=== PATIENT | male | born 1995 | race Caucasian/White ===

== ENCOUNTER 2019-05-06 00:31 | Emergency (ER) | payer OTHER, SELFPAY ==
[2019-05-06 00:38] VITALS: BP 144/97; PULSE 126; RESP 18; TEMP 37; O2SAT 99; BMI 21.7
--- NOTE | 2019-05-06 00:38 | ED_ITS ---
Entered by Samantha Buckner, acting as scribe for Shannon Alonso MD HPI - General Adult General: Chief complaint: General Medical Stated complaint: poss bad drugs Time Seen by Provider: 05/06/19 00:36 Source: patient Mode of arrival: ambulatory History of Present Illness: HPI narrative: 23 y/o male presents to the ED with complaint of meth side effects. Pt states he is visiting from [place], trying to get his probation transferred. While staying in [facility], he decided to use IV meth, 3 hours ago. He is here tonight because he thinks he got bad drugs . He states is is experiencing muscle cramps, SOB/anxiety and fast heart rate. He admits to using meth in the past but says he does not usually feel like this. complaint: Meth use Onset (ago): hour(s) (3) Severity: mild Pain Consistency: constant Associated symptoms: Reports dyspnea and palpitations; Deny headache(s), nausea, rash or vomiting Review of Systems Const: Denies: fever, chills, body aches or change in appetite Eyes: Denies: blurry vision or eye discomfort ENMT: Denies: throat pain or dental pain Card: Reports: palpitations Resp: Reports: shortness of breath GI: Denies: abdominal pain, nausea, vomiting or diarrhea : Denies: painful urination Musc: Reports: muscle cramps; Denies: neck pain or back pain Skin/Breast: Denies: rash Neuro: Denies: headache Psych: Reports: anxiety; Denies: depression Ildefonso/Lymph: Denies: easy bruising All/Imm: Denies: hives PFS ED PFSH: Social History Smoking and tobacco status: current every day smoker Physical Exam Const: COMMON NORMALS: oriented x3 GENERAL APPEARANCE: anxious ORIENTATION/CONSCIOUSNESS: Yes awake HENMT: COMMON NORMALS: normocephalic and head/scalp atraumatic HEAD & SCALP: normocephalic and atraumatic Eye: COMMON NORMALS: PERRL and EOMs intact bilaterally PUPIL: Yes PERRL Neck/C-Spine: COMMON NORMALS: full ROM and supple Chest: COMMONS NORMALS: inspection of chest normal and palpation of chest normal Resp: COMMON NORMALS: normal respiratory effort, no retractions, no use of accessory muscles and clear to auscultation bilaterally AUSCULTATION: clear to auscultation bilaterally Cardio: COMMON NORMALS: regular rhythm and no murmurs RATE: tachycardic RHYTHM: regular rhythm GI: COMMON NORMALS: normal to inspection, nondistended, normoactive bowel sounds, soft to palpation, non-tender and no masses PALPATION: Yes soft Extremity: COMMON NORMALS: normal to inspection and full ROM Neuro: COMMON NORMALS: oriented x3, moves all extremities and no focal motor deficits Psych: COMMON NORMALS: thought process normal, cooperative and speech normal SPEECH: Yes normal speech THOUGHT PROCESS: normal thought process Skin: COMMON NORMALS: no rashes or lesions noted and no wounds GENERAL SKIN EXAM: no rashes or lesions noted Course Vital Signs: Vital signs: Vital Signs Temperature 98.6 F 05/06/19 00:38 Pulse Rate 108 H 05/06/19 00:44 Respiratory Rate 18 05/06/19 00:44 Blood Pressure 144/97 05/06/19 00:44 Pulse Oximetry 97 05/06/19 00:44 MDM - General Adult MDM Narrative: Medical decision making narrative: Patient presents here with drug use. He is well-appearing here and given Ativan. His heart rate is improved. He is stable for discharge. He has no homicidality or suicidality Discharge Plan Discharge Patient Disposition: Home, Self-Care Clinical Impression: Methamphetamine abuse Condition: Stable Prescriptions: No Action No Known Home Medications RF: 0 Discharge Orders: Discharge Order (Routine); Ordered 05/06/19 Ordered By: Shannon Alonso Discharge Diet: Advance as tolerated Discharge Activity: Resume usual activity Patient Instructions: Methamphetamine Abuse (ED) Coding Level of Care Code ED Credit Relationship Manager for g Fwd Exam Comprehensive The documentation recorded by the Dudley marques Ashley, accurately reflects the service I personally performed and the decisions made by Celeste palma Korby, MD May 06, 2019 00:31
[2019-05-06 00:44] VITALS: BP 144/97; PULSE 108; RESP 18; O2SAT 97
--- NOTE | 2019-05-06 00:45 | PC.NURSE ---
Introduced self to patient and initiated vital signs. Patient presents A&O x 4. NAD, ABCs intact, MAEW and agreeable to treatment. Respirations are even and unlabored. Pt states medications taken before coming to ER are . Pt states that the chief complaint for the ER visit today is due to Pt also complaining of . IV observed in . Pt denies any vision disturbances or lightheadedness. Bed left in lowest position in semi-fowlers with side rails up.Reassured patient of needs and will continue to monitor. Awaiting provider at bedside.
--- NOTE | 2019-05-06 00:45 | PC.NURSE ---
Introduced self to patient and initiated vital signs. Patient presents A&O x 4. NAD, ABCs intact, MAEW and agreeable to treatment. Respirations are even and unlabored. Pt states that the chief complaint for the ER visit today is due to possibly getting some bad drugs. Pt states that he did'nt feel the same way as he usually does after snorting methamphetamine and then noticed brown bumps on his arms. Pt denies any vision disturbances or lightheadedness. Bed left in lowest position in semi-fowlers with side rails up.Reassured patient of needs and will continue to monitor.
--- NOTE | 2019-05-06 01:59 | PC.NURSE ---
Discharge delayed in order to [place] patient
== END 2019-05-06 01:25 | disposition home or self-care (01) ==
PROVIDERS: Emergency Provider Emergency Medicine
DX: F15.90 Other stimulant use, unspecified, uncomplicated (principal); F17.210 Nicotine dependence, cigarettes, uncomplicated
CPT/HCPCS: 12345; 99281; 99282

== ENCOUNTER 2019-05-06 01:52 | Emergency (ER) | payer OTHER, SELFPAY ==
--- NOTE | 2019-05-06 02:09 | ED_ITS ---
Entered by Samantha Buckner, acting as scribe for Shannon Alonso MD HPI - General Adult General: Chief complaint: Psychiatric Symptoms Stated complaint: MHE Time Seen by Provider: 05/06/19 01:59 Source: patient Mode of arrival: ambulatory History of Present Illness: HPI narrative: 23 y/o male presents to the ED with complaint of meth induced paranoia. Pt was just d/c prior to checking in again f or meth symptoms. Pt says he thinks his ex-girlfriend is controlling his life, even though the are not together anymore. Pt states she has access to his [employer], [employer], etc and she is controlling the people that he comes into contact with. He says that people do things around him that she used to do . complaint: Meth induced Paranoia - MHE Onset (ago): hour(s) Severity: moderate Associated symptoms: Deny chest pain, dyspnea, headache(s), nausea, rash or vomiting Review of Systems Const: Denies: fever, chills, body aches or change in appetite Eyes: Denies: blurry vision or eye discomfort ENMT: Denies: throat pain or dental pain Card: Denies: chest pain Resp: Denies: shortness of breath GI: Denies: abdominal pain, nausea, vomiting or diarrhea : Denies: painful urination Musc: Denies: neck pain or back pain Skin/Breast: Denies: rash Neuro: Denies: headache Psych: Reports: anxiety and paranoia; Denies: depression Ildefonso/Lymph: Denies: easy bruising All/Imm: Denies: hives PFS ED PFSH: Social History Smoking and tobacco status: current every day smoker Physical Exam Const: COMMON NORMALS: no apparent distress GENERAL APPEARANCE: anxious HENMT: COMMON NORMALS: normocephalic and head/scalp atraumatic HEAD & SCALP: normocephalic and atraumatic Eye: COMMON NORMALS: PERRL and EOMs intact bilaterally PUPIL: Yes PERRL Neck/C-Spine: COMMON NORMALS: full ROM and supple Chest: COMMONS NORMALS: inspection of chest normal and palpation of chest normal Resp: COMMON NORMALS: normal respiratory effort, no retractions, no use of accessory muscles and clear to auscultation bilaterally AUSCULTATION: clear to auscultation bilaterally Cardio: COMMON NORMALS: regular rate, regular rhythm and no murmurs RATE: regular rate RHYTHM: regular rhythm GI: COMMON NORMALS: normal to inspection, nondistended, normoactive bowel sounds, soft to palpation, non-tender and no masses PALPATION: Yes soft Extremity: COMMON NORMALS: normal to inspection and full ROM Neuro: COMMON NORMALS: moves all extremities and no focal motor deficits Psych: COMMON NORMALS: speech normal ATTITUDE: Yes paranoid SPEECH: Yes normal speech Skin: COMMON NORMALS: no rashes or lesions noted and no wounds GENERAL SKIN EXAM: no rashes or lesions noted Course Vital Signs: Vital signs: Vital Signs Temperature 97.8 F 05/06/19 02:14 Pulse Rate 115 H 05/06/19 02:14 Respiratory Rate 16 05/06/19 02:14 Blood Pressure 122/79 05/06/19 02:14 Pulse Oximetry 98 05/06/19 02:14 MDM - General Adult MDM Narrative: Medical decision making narrative: Patient presents here with some mild hallucinations. He states that his girlfriend is logging into his [employer] and [employer]. Patient is not homicidal or suicidal. He did use methamphetamine today. He is well-appearing here and I feel he is stable for discharge and safe on his own. Patient is to follow-up with [facility] and return if worsening. Discharge Plan Discharge Patient Disposition: Home, Self-Care Clinical Impression: Methamphetamine abuse Condition: Stable Prescriptions: No Action No Known Home Medications RF: 0 Discharge Orders: Discharge Order (Routine); Ordered 05/06/19 Ordered By: Shannon Alonso Discharge Diet: Advance as tolerated Discharge Activity: Resume usual activity Patient Instructions: Methamphetamine Abuse (ED) Coding Level of Care Code ED Gold Blower for Chg Fwd Exam Comprehensive The documentation recorded by the Dudley marques Ashley, accurately reflects the service I personally performed and the decisions made by me, Shannon Alonso MD May 06, 2019 01:52
[2019-05-06 02:14] VITALS: BP 122/79; PULSE 115; RESP 16; TEMP 36.6; O2SAT 98; BMI 21.7
== END 2019-05-06 04:16 | disposition home or self-care (01) ==
PROVIDERS: Emergency Provider Emergency Medicine
DX: F15.988 Other stimulant use, unspecified with other stimulant-induced disorder (principal); F17.210 Nicotine dependence, cigarettes, uncomplicated
CPT/HCPCS: 12345; 99281

== ENCOUNTER 2019-09-07 16:20 | Outpatient (CLI) | payer OTHER, SELFPAY ==
--- NOTE | 2019-09-07 16:32 | XR_ITS ---
WS: [id number] ABDOMEN 1 VIEW(S) HISTORY: HX OF CALCULUS KIDNEY, HEMATURIA COMPARISON: None available. Normal bowel gas pattern. RIGHT ureteral double pigtail stent catheters present. 12 mm calcification projects over the RIGHT ki dney. Additional 7 mm calcification over the LEFT kidney. No bone abnormality. XR/XR KUB [id number] IMPRESSION: 1. RIGHT ureteral pigtail catheter remains in good position. 2. Bilateral nephrolithiasis.
== END 2019-09-07 16:21 | disposition home or self-care (01) ==
LOC: RAD 16:24
PROVIDERS: Visit Provider Nurse Practitioner Family
DX: Z87.442 Personal history of urinary calculi (principal); R31.9 Hematuria, unspecified; R30.9 Painful micturition, unspecified
CPT/HCPCS: 74018

== ENCOUNTER 2019-09-12 22:01 | Emergency (ER) | payer OTHER, SELFPAY ==
[2019-09-12 22:34] VITALS: BP 125/84; PULSE 88; RESP 14; TEMP 35.6; O2SAT 99; BMI 26.4
[2019-09-12 23:18] LABS: Basophils # 0.1 10^3/uL (0.0-0.1); Basophils % 1.4 %; Eosinophils # 0.3 10^3/uL (0.0-0.8); Eosinophils % 3.4 %; Hematocrit 44.5 % (42.0-52.0); Hemoglobin 14.6 g/dL (11.7-16.6); Lymphocytes # 2.8 10^3/uL (0.8-4.8); Lymphocytes % 35.8 %; Mean Corpuscular HGB Conc 32.8 g/dL (30.0-36.0); Mean Corpuscular Hemoglobin 29.6 pg (28.0-34.0); Mean Corpuscular Volume 90.3 fL (80-94); Mean Platelet Volume 11.3 fL (7.4-10.4); Monocytes # 1.1 10^3/uL (0.2-0.9); Monocytes % 13.4 %; Neutrophils # 3.61 10^3/uL (1.8-7.7); Neutrophils % 45.6 %; Nucleated Red Blood Cells % 0 %; Platelet Count 270 10^3/cmm (130-400); Red Blood Count 4.93 10^6/uL (4.1-5.3); Red Cell Distribution Width 13.3 % (12.1-15.1); White Blood Count 7.9 10^3/uL (4.0-10.0)
[2019-09-12 23:31] LABS: Alanine Aminotransferase 26 U/L (0-41); Albumin Level 4.4 g/dL (3.5-5.2); Alkaline Phosphatase 46 IU/L (40-130); Anion Gap 13.8 (5-19); Aspartate Amino Transferase 25 U/L (0-40); Blood Urea Nitrogen 11 mg/dL (6-20); Calcium 9.6 mg/dL (8.5-10.5); Carbon Dioxide 29 mmol/L (22-29); Chloride 101 mmol/L (98-107); Creatinine Clr Calc Pharmacy 135.6994; Globulin 2.9 g/dL (1.3-4.6); Glomerular Filtration Rate 91.8 mL/min (90-130); Glucose 81 mg/dL (65-115); Osmolality Calculated 283 mOsm/kg (285-295); Potassium 4.8 mmol/L (3.5-5.1); Sodium 139 mmol/L (136-145); Total Bilirubin 0.2 mg/dL (0.15-1.2); Total Protein 7.3 g/dL (6.6-8.7)
--- NOTE | 2019-09-13 00:05 | ED_ITS ---
HPI - Abdominal Pain General: Chief Complaint: Abdominal Pain Stated Complaint: passing kidney stones; pain Time Seen by Provider: 09/13/19 00:04 Source: patient Mode of arrival: ambulatory Limitations: no limitations History of Present Illness: HPI narrative: Patient is a nice 23-year-old male who presents to ED today with a complaint of lower abdominal pain that began today. Patient also has chronic complaints of pain within his penis, burning with urination, intermittent difficulty with urination, and intermittent urinary incontinence. He states the symptoms have been present for 2 to 3 months. He tells me he has a history of nephrolithiasis. He states back in July 2018 he had a right ureter stent placed and states since that time he has been diagnosed with 3 previous UTIs/kidney infections. Patient reports he was recently diagnosed with a UTI at [facility] and they were supposed to be referring patient to Dr. Man. Patient tells me they also tested him for STDs which came back negative. He is not having any penile discharge. He does not complain of any scrotal redness or swelling. Patient denies fevers, chills, nausea, vomiting. He reports normal bowel movements. MD elicited complaint: abdominal pain Pertinent past history: kidney stones Onset (ago): day(s) (lower abdominal pain beginning today) Pain Consistency: constant Location: Other (lower abdomen ) Severity: moderate Radiation: none Migration to: no migration Exacerbating factors: nothing Relieving factors: nothing Associated Symptoms: Reports dysuria; Denies chills, constipation, diarrhea, fever(s), hematuria, nausea and vomiting Review of Systems Const: Denies: fever(s), chills, body aches, fatigue or malaise Card: Denies: chest pain Resp: Denies: dyspnea GI: Reports: abdominal pain; Denies: nausea, vomiting, diarrhea or constipation : Reports: difficulty urinating, dysuria, difficulty starting urination and urinary incontinence; Denies: flank pain, nocturia, oliguria, hematuria, genital pain, genital lesions, penile discharge, testicular pain, testicular mass or scrotal swelling Musc: Denies: neck pain, back pain, extremity pain, extremity swelling, joint pain or joint swelling Skin/Breast: Denies: rash Neuro: Denies: headache(s), numbness in extremities, weakness in extremities or sensory changes PFSH ED PFSH: Social History Smoking and tobacco status: current every day smoker Physical Exam Const: COMMON NORMALS: no acute distress, average body habitus, patient oriented x3, no limitations, healthy appearing, alert and well nourished GI: COMMON NORMALS: Normal to inspection, nondistended, normoactive bowel sounds present, Soft to palpation, No hepatosplenomegaly present and no masses PALPATION: Yes Soft to palpation, Yes Tenderness to palpation present (GI) (throughout lower abdomen ) and Yes No hepatosplenomegaly present : COMMON NORMALS: Yes no CVA tenderness BLADDER/KIDNEY EXAM: Yes no CVA tenderness Back/Pelvis: COMMON NORMALS: no CVA tenderness Extremity: COMMON NORMALS: normal to inspection Neuro: COMMON NORMALS: patient oriented x3 SENSORIUM/ORIENTATION: Yes alert Skin: COMMON NORMALS: no rashes or lesions noted GENERAL SKIN EXAM: no rashes or lesions noted Course Vital Signs: Vital signs: Vital Signs Temperature 96.1 F L 09/12/19 22:34 Pulse Rate 12 L 09/13/19 02:27 Respiratory Rate 86 H 09/13/19 02:27 Blood Pressure 138/74 09/13/19 02:27 Pulse Oximetry 97 09/13/19 02:27 MDM - Abdominal Pain MDM Narrative: Medical decision making narrative: CT showing bilateral nonobstructing stones. There was some concern for possible right-sided pyelo however clinically patient has no evidence for this. Patient is not tachycardic or febrile. No leukocytosis. He has absolutely no flank pain. He is not having any nausea or vomiting and able to hold down medications. His UA does show 2+ leuks and 15-25 WBCs so we will go ahead and put patient on ciprofloxacin. [facility] is supposed to be working on Dr. Man's follow-up appointment. I will have our case management team also work on this. Return to ED precautions given. Case ran by Dr. Russell who agrees with plan. Lab Data: Labs: Lab Results 09/12/19 09/12/19 09/13/19 Range/Units 23:13 23:13 00:10 WBC 7.9 (4.0-10.0) 10^3/ uL RBC 4.93 (4.1-5.3) 10^6/u L Hgb 14.6 (11.7-16.6) g/dL Hct 44.5 (42.0-52.0) % MCV 90.3 (80-94) fL MCH 29.6 (28.0-34.0) pg MCHC 32.8 (30.0-36.0) g/dL RDW 13.3 (12.1-15.1) % Plt Count 270 (130-400) 10^3/c mm MPV 11.3 H (7.4-10.4) fL Neut % (Auto) 45.6 % Lymph % (Auto) 35.8 % Lincoln % (Auto) 13.4 % Eos % (Auto) 3.4 % Baso % (Auto) 1.4 % Neut # (Auto) 3.61 (1.8-7.7) 10^3/u L Lymph # (Auto) 2.8 (0.8-4.8) 10^3/u L Lincoln # (Auto) 1.1 H (0.2-0.9) 10^3/u L Eos # (Auto) 0.3 (0.0-0.8) 10^3/u L Baso # (Auto) 0.1 (0.0-0.1) 10^3/u L Nucleated RBC % (a uto) 0 % Nucleated RBCs # 0.0 /100WBC Sodium 139 (136-145) mmol/L Potassium 4.8 (3.5-5.1) mmol/L Chloride 101 (98-107) mmol/L Carbon Dioxide 29 (22-29) mmol/L Anion Gap 13.8 (5-19) BUN 11 (6-20) mg/dL Creatinine 1.0 (0.7-1.2) mg/dL GFR Calculation 91.8 (90-130) mL/min Glucose 81 (65-115) mg/dL Calculated Osmolal ity 283 L (285-295) mOsm/k g Calcium 9.6 (8.5-10.5) mg/dL Total Bilirubin 0.2 (0.15-1.2) mg/dL AST 25 (0-40) U/L ALT 26 (0-41) U/L Alkaline Phosphata se 46 (40-130) IU/L Total Protein 7.3 (6.6-8.7) g/dL Albumin 4.4 (3.5-5.2) g/dL Globulin 2.9 (1.3-4.6) g/dL Urine Color Yellow (Yellow) Urine Appearance Hazy A (CLEAR) Urine pH 5 (5-7) Ur Specific Gravit y 1.015 (1.005-1.030) Urine Protein 1+ H (Negative) Urine Glucose (UA) Norm (Normal) Urine Ketones Negative (Negative) Urine Blood 3+ H (Negative) Urine Nitrate Negative (Negative) Urine Bilirubin Neg (NEGATIVE) Urine Urobilinogen Norm (Negative) mg/dL Ur Leukocyte Jena ase 2+ H (Negative) Urine RBC >100 H (0-2) /hpf Urine WBC 15-25 H (0-5) /hpf Ur Squamous Epith Cells 0-4 H (0-5) Amorphous Sediment Not Reportable Urine Bacteria Trace (NONE) Urine Mucus Trace Imaging Data ^: CT renal: Radiologist's impression: [place] [address] CT Scan Report Signed Patient: Kahlil Rose Unit #: [id number] : 1995 Age/Sex: 23 / M ADM Date: 09/12/19 Loc: ER Room/Bed: Attending Dr: Ordering Provider/Ordering MD: Анна Murrell Date of Service: 09/13/19 Procedure(s): CT kidney stone 89810 Accession Number(s): [id number] Report Number: [id number] PROCEDURE INFORMATION: Exam: CT Abdomen And Pelvis Without Contrast Exam date and time: 09/13/2019 1:03 AM Age: 23 years old Clinical indication: Abdominal pain; Periumbilical; Additional info: Known kidney stones; Lower abdominal pain; Symptoms of UTI TECHNIQUE: Imaging protocol: Computed tomography of the abdomen and pelvis without contrast. Radiation optimization: All CT scans at this facility use at least one of these dose optimization techniques: automated exposure control; mA and/or kV adjustment per patient size (includes targeted exams where dose is matched to clinical indication); or iterative reconstruction. COMPARISON: CR XR KUB [id number] 09/07/2019 4:38 PM RADIATION DOSE METRICS: Total DLP (mGy-cm): 1634.71 FINDINGS: Liver: Normal. No mass. Gallbladder and bile ducts: The gallbladder appears mildly contracted. Pancreas: Normal. No ductal dilation. Spleen: Normal. No splenomegaly. Adrenals: Normal. No mass. Kidneys and ureters: There is a double pigtail right ureteral stent present. There is an 8 x 11 mm nonobstructing lower pole calculus seen within the right kidney. There is mild hydronephrosis present within the right kidney. Some strandy opacities are seen adjacent to the right renal pelvis and proximal right ureter possibly representing mild inflammatory changes and pyelonephritis or ureteritis. There is a 4.4 mm nonobstructing lower pole calculus seen within the left kidney. Stomach and bowel: Unremarkable. No obstruction. No mucosal thickening. Appendix: No evidence of appendicitis. Intraperitoneal space: Unremarkable. No free air. No significant fluid collection. Vasculature: Unremarkable. No abdominal aortic aneurysm. Lymph nodes: Unremarkable. No enlarged lymph nodes. Bladder: Unremarkable as visualized. Reproductive: Unremarkable as visualized. Bones/joints: Unremarkable. No acute fracture. Soft tissues: Unremarkable. CT/CT kidney stone [id number] IMPRESSION: 1. There is a double pigtail right ureteral stent present. Some haziness is seen adjacent to the right kidney and proximal right ureter, findings could represent some inflammatory changes and pyelonephritis or ureteritis. 2. There are bilateral nonobstructing renal calculi. The largest is seen on the right measuring 8 x 11 mm. Radiation Dose CTDIVOL = (mGy): DLP = 1634.71 (mGy-cm) Dictated By: Beau High MD Signed By: Beau High MD Signed Date/Time: 09/13/19137 DD/ 6 Discharge Plan Discharge Patient Disposition: Home, Self-Care Clinical Impression: Bilateral nephrolithiasis Urinary tract infection Qualifiers: Urinary tract infection type: acute cystitis Hematuria presence: with hematuria Qualified Code(s): N30.01 - Acute cystitis with hematuria Condition: Stable Prescriptions: New Cipro 500 mg tablet 500 mg PO Q12H Qty: 14 RF: 0 Discharge Orders: Discharge Order (Routine); Ordered 09/13/19 Ordered By: Анна Murrell Referrals: Patrick Man MD [Physician] - Activity Restrictions/Additional Instructions: Return to the emergency department for worsening pain, onset of flank pain, nausea, vomiting, inability to hold down your antibiotics, fevers, or any other concerns you may have. Please follow-up with Dr. Man as soon as possible. Discharge Date/Time: 09/13/19 02:29 Coding Level of Care Code ED Homoeopath for Chg Fwd Exam Detailed
--- NOTE | 2019-09-13 00:16 | CTR_ITS ---
PROCEDURE INFORMATION: Exam: CT Abdomen And Pelvis Without Contrast Exam date and time: 09/13/2019 1:03 AM Age: 23 years old Clinical indication: Abdominal pain; Periumbilical; Additional info: Known kidney stones; Lower abdominal pain; Symptoms of UTI TECHNIQUE: Imaging protocol: Computed tomography of the abdomen and pelvis without contrast. Radiation optimization: All CT scans at this facility use at least one of these dose optimization techniques: automated exposure control; mA and/or kV adjustment per patient size (includes targeted exams where dose is matched to clinical indication); or iterative reconstruction. COMPARISON: CR XR KUB [id number] 09/07/2019 4:38 PM RADIATION DOSE METRICS: Total DLP (mGy-cm): 1634.71 FINDINGS: Liver: Normal. No mass. Gallbladder and bile ducts: The gallbladder appears mildly contracted. Pancreas: Normal. No ductal dilation. Spleen: Normal. No splenomegaly. Adrenals: Normal. No mass. Kidneys and ureters: There is a double pigtail right ureteral stent present. There is an 8 x 11 mm nonobstructing lower pole calculus seen within the right kidney. There is mild hydronephrosis present within the right kidney. Some strandy opacities are seen adjacent to the right renal pelvis and proximal right ureter possibly representing mild inflammatory changes and pyelonephritis or ureteritis. There is a 4.4 mm nonobstructing lower pole calculus seen within the left kidney. Stomach and bowel: Unremarkable. No obstruction. No mucosal thickening. Appendix: No evidence of appendicitis. Intraperitoneal space: Unremarkable. No free air. No significant fluid collection. Vasculature: Unremarkable. No abdominal aortic aneurysm. Lymph nodes: Unremarkable. No enlarged lymph nodes. Bladder: Unremarkable as visualized. Reproductive: Unremarkable as visualized. Bones/joints: Unremarkable. No acute fracture. Soft tissues: Unremarkable. CT/CT kidney stone [id number] IMPRESSION: 1. There is a double pigtail right ureteral stent present. Some haziness is seen adjacent to the right kidney and proximal right ureter, findings could represent some inflammatory changes and pyelonephritis or ureteritis. 2. There are bilateral nonobstructing renal calculi. The largest is seen on the right measuring 8 x 11 mm. Radiation Dose CTDIVOL = (mGy): DLP = 1634.71 (mGy-cm)
[2019-09-13 00:33] VITALS: BP 152/104; PULSE 86; RESP 18; O2SAT 97
[2019-09-13 00:53] LABS: Add Urine Microscopic? YES; Bilirubin Urine Neg (NEGATIVE); Blood Urine 3+ (Negative); Glucose Urine UA Norm (Normal); Ketones Urine Negative (Negative); Leukocyte Esterase Urine 2+ (Negative); Nitrate Urine Negative (Negative); Protein Urine 1+ (Negative); Specific Gravity, Urine 1.015 (1.005-1.030); Urine Appearance Hazy (CLEAR); Urine Color Yellow (Yellow); Urobilinogen Urine Norm (Negative); pH Urine 5 (5-7)
[2019-09-13 00:54] LABS: Bacteria Urine TRACE; Mucus Urine TRACE; RBC Urine >100 /hpf (0-2); Squamous Epithelial Cell Urine 0-4 (0-5); WBC Urine 15-25 /hpf (0-5)
[2019-09-13 00:55] LABS: Add Urine Culture? Yes
[2019-09-13 02:27] VITALS: BP 138/74; PULSE 12; RESP 86; O2SAT 97
--- NOTE | 2019-09-13 08:52 | DCPLANNER ---
banking center manager had message to schedule a follow up appointment for patient with Dr. aMn. banking center manager called the office of Dr. Man, spoke with Nikki, gave clinic patients information. banking center manager was told that patients information would be printed and reviewed. Clinic will call patient with appointment information.
--- NOTE | 2019-09-14 08:06 | DCPLANNER ---
Patient has a follow up appointment scheduled for Saturday, September 14, 2019 at 1:[address] Man. Clinic will call patient with appointment information.
--- NOTE | 2019-09-15 15:09 | DCPLANNER ---
Patient did attend appointment scheduled for 09.14.19 with .
== END 2019-09-13 02:29 | disposition home or self-care (01) ==
PROVIDERS: Emergency Medicine; Emergency Provider Physician Assistant
DX: N30.01 Acute cystitis with hematuria (principal); N20.0 Calculus of kidney; F17.210 Nicotine dependence, cigarettes, uncomplicated
CPT/HCPCS: 12345; 74176; 80053; 81001; 81003; 85025; 87086; 87491; 87591; 96360; 99283

== ENCOUNTER 2019-09-14 12:11 | Outpatient (CLI) | payer OTHER, SELFPAY ==
--- NOTE | 2019-09-14 12:00 | XR_ITS ---
WS: [id number] KUB, 09/14/2019 Clinical Data: Stones Comparison: KUB, 09/07/2019. Findings: The ureteral catheter extending from the right renal pelvis to the bladder has not changed. The 1.2 cm and 0.7 cm calcifications overlying the right and left kidneys respectively remain unchang ed. XR/XR KUB [id number] Impression: 1. No change in right ureteral catheter. 2. No change in bilateral renal stones.
== END 2019-09-14 12:12 | disposition home or self-care (01) ==
LOC: RAD 12:13
PROVIDERS: PCP Physician Assistant; Visit Provider Urology
DX: N20.0 Calculus of kidney (principal); Z96.0 Presence of urogenital implants
CPT/HCPCS: 74018; 81001

== ENCOUNTER 2019-09-16 13:10 | Day surgery (SDC) | payer OTHER, SELFPAY ==
[2019-09-15 11:17] VITALS: BMI 26.4
[2019-09-16] VITALS (9 sets, daily range): BP systolic 112–144; BP diastolic 62–92; PULSE 70–103; RESP 16–22; TEMP 36.1–36.6; O2SAT 96–100
--- NOTE | 2019-09-16 13:15 | XR_ITS ---
WS: [id number] KUB, 09/16/2019 Clinical Data: Preop ESWL right renal calculus Comparison: KUB, 09/14/2019. Findings: The bilateral renal calculi remain the same. There is a right ureteral catheter extending from the ri t renal pelvis into the bladder. There is fecal material in the ascending colon. XR/XR KUB [id number] Impression: 1. No change in right ureteral catheter. 2. No change in bilateral renal calculi.
[2019-09-16] MEDS: sodium chloride 0.9% 1,000 ML 30 ML IV (13:50)
--- NOTE | 2019-09-16 14:19 | ANES.PREANE2 ---
Pre-Anesthetic Assessment Pre-Anesthetic Assessment: Height/Weight: Height 1.85 m Weight 90.718 kg Temp Pulse Resp BP Pulse Ox 97.3 F L 103 H 18 144/92 96 09/16/19 13:42 09/16/19 13:42 09/16/19 13:42 09/16/19 13:42 09/16/19 13:42 Preop Diagnosis: Right lower pole stone, encrusted right ureteral stent Proposed Procedure: Operation Date: 09/16/19 14:20 Proposed Procedures p Cystoscopy 40360 31798 Z96.0 N20.0 N30.01(Not Applicable) - Patrick Man MD s Ureteral Stent Exchange(Right) - Patrick Man MD s ESWL(Not Applicable) - Patrick Man MD Familial anesthetic complications: none Last intake: Intake Last Liquid Date 09/16/19 Last Liquid Time 10:00 Last Solid Date 09/15/19 Last Solid Time 00:00 Social: Social History: Tobacco and No alcohol Exam: Pre-Anes Outpt Exam: alert, oriented x 3, clear to auscultation bilaterally and regular rate & rhythm Airway: Cervical ROM: WNL MP: 2 Dentition: Chipped and Loose Anesthetic Plan: ASA status: 2 Anesthesia: General Risk of > 500 ml blood loss (7ml/kg in children): No Meds/Allergies Current Medications: Current Medications Generic Name Dose Route Start Last Admin Trade Name Freq PRN Reason Stop Dose Admin Sodium Chloride 1,000 mls @ 30 ml s/hr 09/16/19 08:45 09/16/19 13:50 Sodium Chloride 0.9% IV 09/17/19 08:44 30 mls/hr .Q24H JOSE MANUEL Administration PFSH Anesthesia PFSH: Medical History H/O drug abuse Retained ureteral stent Surgical History S/P cystoscopy with ureteral stent placement Family History Mother Cancer Diabetes PKD (polycystic kidney disease) Father Cancer Social History Smoking and tobacco status: current every day smoker Alcohol intake: never Marital status: Single Current occupational status: unemployed History of recent travel: No Data Anesthesia Cardiac Studies: No Data to Display
--- NOTE | 2019-09-16 15:20 | P.OP_ITS ---
Operative Report Date of procedure: September 16, 2019 Pre-op Diagnosis: Right lower pole stone, encrusted right ureteral stent Post-op diagnosis: same Procedure Done: Cystoscopy, cystolitholapaxy to stones on distal aspect of right ureteral stent. Extracorporeal shockwave lithotripsy to the proximal aspect of the right ureteral stent. Extracorporeal shockwave lithotripsy to right lower pole stone Right ureteral stent placement 6 Bhutanese by 30 cm double-pigtail without string Pathology: none sent Surgeon: Magda Gold Leaf Layer: Lithotripsy Assembly Department Supervisor: Dhiraj Rodríguez Anesthesia: General Estimated blood loss: Minimal Urine output: Not measured Complications: None Brief History: Kahlil is a very pleasant 23-year-old white male who underwent endoscopic treatment of a right ureteral stone elsewhere and shortly thereafter was incarcerated. Stent was placed over a year ago. He was recently seen in our emergency department and referred to me for evaluation of the stent and stones that remain. Was found to have a large stone in his right lower pole, moderate distal and likely proximal encrustation of the stent. Plans were made for cystolitholapaxy to the stone on the distal aspect of the stent, ESWL to the proximal aspect of the stent, stent removal and replacement and then treatment of the right lower pole renal calculus. He has been in rehab for drug abuse and apparently is doing very well. He seems motivated to try to get past this event and has promised to be compliant. Procedure: After routine preoperative evaluation examination and obtaining of informed consent he was taken to the operating suite on 09/16/2019 where general anesthesia was administered without difficulty after appropriate timeout was performed, SCDs confirmed to be functioning, preoperative antibiotics administered, beta-lucy protocol confirmed. Prepped and draped in the usual sterile fashion in dorsolithotomy position pain careful attention to avoiding pressure points. The shock head was positioned posteriorly and the proximal curl of the stent was brought into the focal point. Shockwave was initiated at a rate of 60 and an intensity of 1 which was then advanced slowly to an intensity of 4 21 Bhutanese cystoscope with 30 degree lens was introduced into the urethra meatus and advanced into the bladder under videoscopy. The distal aspect of the stent was heavily encrusted and it was treated with crushing forceps to remove the stone material. A flexible tip guidewire was then advanced up the right ureter next to the stent and after approximately 500-600 shocks to the proximal end of the stent grasping forceps were utilized and the stent removed without difficulty. The cystoscope was then backloaded over the guidewire and a 30 cm x 6 Bhutanese ureteral stent was then passed over the guidewire through the cystoscope into appropriate position as confirmed via fluoroscopy and cystoscopy. The bladder was drained. While the stent was being removed the shock focal point was moved to the right lower pole stone. It showed early change at approximately 350-400 shocks After about 1000 shocks it was hard to see much. A total of 2500 shocks were administered to the remaining fragments from the larger stone and it appeared at that point that there was only sand remaining. He tolerated the procedure well without complications and was awakened in the operating room and returned to the care of room in stable condition. PLANS: 1. Follow-up in 2 weeks with [facility] in anticipation of cystoscopy with stent removal 2. Strain to collect fragments Associated Problem List Diagnoses (1) Retained ureteral stent: (2) Bilateral nephrolithiasis:
--- NOTE | 2019-09-16 15:20 | W.PM.OPSUD ---
Surgery/Procedure H&P Update DATE OF PROCEDURE: September 16, 2019 DATE H&P PERFORMED: 09/14/19 H&P UPDATE INFORMATION: I have reviewed H&P completed within last 30 days, I have examined patient prior to procedure, No changes to prior documentation and H&P is in [facility] on date indicated PREOP DIAGNOSIS: Right lower pole stone, encrusted right ureteral stent PLANNED PROCEDURE: Operation Date: 09/16/19 14:20 Proposed Procedures p Cystoscopy [id number] [id number] Z96.0 N20.0 N30.01(Not Applicable) - Patrick Man MD s Ureteral Stent Exchange(Right) - Patrick Man MD s ESWL(Not Applicable) - Patrick Man MD Related Problem List Diagnoses (1) Bilateral nephrolithiasis: (2) Retained ureteral stent:
[2019-09-16] MEDS: levofloxacin-dextrose 5 % 500 MG/100 ML PREMIX 100 MG IV (15:59)
== END 2019-09-16 18:40 | disposition home or self-care (01) ==
PROVIDERS: PCP Physician Assistant; Visit Provider Urology
PROC: 0TJB8ZZ Inspection of Bladder, Via Natural or Artificial Opening Endoscopic (ICD-10-PCS; CPT 52000; principal; 2019-09-16 14:20)
PROC: (CPT 50590; 2019-09-16 14:20)
PROC: (CPT 50590; 2019-09-16 14:20)
DX: N20.2 Calculus of kidney with calculus of ureter (principal); F17.210 Nicotine dependence, cigarettes, uncomplicated
CPT/HCPCS: 50590; 52317; 52332; 12345; 74018; C2625; J1100; J1956; J2405; J2704; J2710; J3010; J3490; J7030

== ENCOUNTER 2019-10-05 06:53 | Outpatient (CLI) | payer OTHER, SELFPAY ==
--- NOTE | 2019-10-05 07:30 | XRR_ITS ---
PROCEDURE INFORMATION: Exam: XR Abdomen, 1 View Exam date and time: 10/05/2019 7:05 AM Age: 23 years old Clinical indication: Condition or disease; Kidney or ureter condition; Calculus (stone) in kidney; Prior surgery; Surgery type: Stent, ureteral; Additional info: Stones f/u TECHNIQUE: Imaging protocol: XR of the abdomen. Views: Frontal supine view of the abdomen. 1 View. COMPARISON: CR XR KUB [id number] 09/16/2019 1:26 PM FINDINGS: Gastrointestinal tract: The bowel gas pattern is nonspecific. Air filled large bowel including distal rectal gas. Organs: Calcification overlies the mid pole region left kidney. 7 mm. Vasculature: Double-J ureteric stent on the right. Bones/joints: Unremarkable. XR/XR KUB [id number] IMPRESSION: 1. Double-J ureteric stent on the right. Calcification overlying the lower pole the right kidney no longer visualized. 2. Calcification overlies the mid pole region left kidney. 7 mm. 3. The bowel gas pattern is nonspecific. Air filled large bowel including distal rectal gas.
== END 2019-10-05 06:54 | disposition home or self-care (01) ==
PROVIDERS: PCP Physician Assistant; Visit Provider Urology
DX: N20.0 Calculus of kidney (principal); Z96.0 Presence of urogenital implants
CPT/HCPCS: 74018; 81001

== ENCOUNTER → 2019-11-24 11:51 | Outpatient (BNVA) | payer OTHER, SELFPAY | PROVIDERS: PCP Physician Assistant; Visit Provider Nurse Practitioner Family | DX: J06.9 Acute upper respiratory infection, unspecified (principal); Z20.828 Contact with and (suspected) exposure to other viral communicable diseases | CPT/HCPCS: 87635 ==

== ENCOUNTER 2020-01-23 11:39 | Inpatient (IN) | payer OTHER, SELFPAY ==
[2020-01-23] VITALS (8 sets, daily range): BP systolic 123–146; BP diastolic 78–92; PULSE 80–98; RESP 16–20; TEMP 36.2–37.1; O2SAT 94–99; BMI 26.4
--- NOTE | 2020-01-23 12:06 | ECG_ITS ---
[facility] Test Date: 2020-01-23 Pat Name: Kahlil Rose Department: Room: Gender: Male Soils Analyst: : 1995 Requested By: Yuridia Lowery Order Number: [id number] Juarez MD: Bunny Crawford M.D. Measurements Intervals [place] Rate: 84 P: 81 VA: 149 QRS: 59 QRSD: 97 T: 50 QT: 381 QTc: 451 Interpretive Statements SINUS RHYTHM WITH SINUS ARRHYTHMIA No previous ECG available for comparison Electronically Signed On 01-23-2020 18:41:08 PATIENT SVCS MGR by Bunny Crawford M.D. [id number]
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
[2020-01-23 13:33] LABS: Basophils # 0.1 10^3/uL (0.0-0.1); Basophils % 0.4 %; Eosinophils # 0.1 10^3/uL (0.0-0.8); Eosinophils % 1.2 %; Hematocrit 47.5 % (42.0-52.0); Hemoglobin 15.8 g/dL (11.7-16.6); Lymphocytes # 2.6 10^3/uL (0.8-4.8); Lymphocytes % 22.1 %; Mean Corpuscular HGB Conc 33.3 g/dL (30.0-36.0); Mean Corpuscular Hemoglobin 29.9 pg (28.0-34.0); Mean Platelet Volume 10.9 fL (7.4-10.4); Monocytes # 1.1 10^3/uL (0.2-0.9); Neutrophils # 7.89 10^3/uL (1.8-7.7); Nucleated Red Blood Cells % 0 %; Platelet Count 273 10^3/cmm (130-400); Red Blood Count 5.28 10^6/uL (4.1-5.3); Red Cell Distribution Width 13.3 % (12.1-15.1); White Blood Count 11.8 10^3/uL (4.0-10.0)
[2020-01-23 13:55] LABS: Amphetamines Screen Urine Positive (Negative); Barbiturates Screen Urine Negative (Negative); Benzodiazepines Screen Urine Negative (Negative); Cocaine Screen Urine Negative (Negative); Opiate Screen Urine Negative (Negative); PCP Screen Urine Negative (Negative); THC Screen Urine Negative (Negative)
[2020-01-23 14:11] LABS: Alanine Aminotransferase 22 U/L (0-41); Albumin Level 4.7 g/dL (3.5-5.2); Alkaline Phosphatase 44 IU/L (40-130); Anion Gap 16.6 (5-19); Aspartate Amino Transferase 28 U/L (0-40); Blood Urea Nitrogen 14 mg/dL (6-20); Calcium 9.4 mg/dL (8.5-10.5); Carbon Dioxide 23 mmol/L (22-29); Chloride 105 mmol/L (98-107); Creatinine Clr Calc Pharmacy 149.4773; Globulin 2.6 g/dL (1.3-4.6); Glomerular Filtration Rate 102.8 mL/min (90-130); Glucose 77 mg/dL (65-115); Osmolality Calculated 291 mOsm/kg (285-295); Potassium 3.6 mmol/L (3.5-5.1); Sodium 141 mmol/L (136-145); Thyroid Stimulating Hormone 1.18 uIU/mL (0.27-4.20); Total Bilirubin 0.6 mg/dL (0.15-1.2); Total Protein 7.3 g/dL (6.6-8.7)
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
[2020-01-23 15:08] LABS: Acetaminophen < 5.0 ug/mL (10-30); Alcohol Level < 10 mg/dL (0-10); Salicylate < 0.3 mg/dL (3-10)
--- NOTE | 2020-01-23 16:07 | PC.NURSE ---
After calling report and preparing to transfer patient to NPU, patient asked if there was a legal hold on him, nurse told him there was not one at the time and would inform the physician. Physician then placed patient on 96 hour hold for patients safety. Updated patient on situation and he stated, honestly I am here for medications because I dont think I can make it until my appointment in January so I think it would help to stay and get the medications I need.
[2020-01-24 05:31] VITALS: BP 123/62; PULSE 87; RESP 17; TEMP 36.7; O2SAT 96
[2020-01-24] MEDS: acetaminophen 325 mg Tablet 650 MG PO ×2 (10:20→19:34)
[2020-01-24 14:00] VITALS: BP 112/70; PULSE 96; RESP 20; TEMP 36.7; O2SAT 98
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
[2020-01-24] MEDS: risperiDONE 1 mg Tablet PO (19:33)
[2020-01-24] MEDS: mirtazapine 15 mg Tablet PO (19:33)
[2020-01-24 19:36] VITALS: BP 110/66; PULSE 70; RESP 16; TEMP 36.7; O2SAT 98
[2020-01-25 06:00] VITALS: BP 107/62; PULSE 70; RESP 16; TEMP 36.5; O2SAT 97
[2020-01-25] MEDS: acetaminophen 325 mg Tablet 650 MG PO (10:47)
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
[2020-01-25 11:34] VITALS: BP 107/62; PULSE 70; RESP 16; TEMP 36.5; O2SAT 97
--- NOTE | 2020-01-25 11:42 | PC.NURSE ---
DISCHARGE MEDS CALLED INTO [facility] [place] SPOKE TO MARILIA. DISCHARGE MEDS ORDERED BY Kristi GREY. RISPERDAL 1 MG PO HS #30 TABS, 3 REFILLS MIRTAZAPINE 15 MG PO HS #30 TABS, 3 REFILLS
--- NOTE | 2020-01-25 14:09 | PC.RESP ---
SMOKING CESSATION INFORMATION SENT TO PATIENT.
== END 2020-01-25 11:47 | disposition home or self-care (01) | DRG 885 ==
LOC: ER 11:57 → NP 15:17
PROVIDERS: Admitting Provider Psychiatry & Neurology Psychiatry; Emergency Provider Emergency Medicine; PCP Physician Assistant; Visit Provider Psychiatry & Neurology Psychiatry
DX: F22 Delusional disorders (principal); R45.851 Suicidal ideations; F31.9 Bipolar disorder, unspecified; Z91.14 Patient's other noncompliance with medication regimen; F15.10 Other stimulant abuse, uncomplicated
CPT/HCPCS: 12345; 73130; 80053; 80306; 80307; 84443; 85025; 93005; 99281

== ENCOUNTER → 2020-01-31 08:37 | Outpatient (BNVA) | payer OTHER, SELFPAY | PROVIDERS: PCP Physician Assistant; Visit Provider Psychiatry & Neurology Psychiatry | DX: F15.20 Other stimulant dependence, uncomplicated (principal); F17.200 Nicotine dependence, unspecified, uncomplicated | CPT/HCPCS: 99204 ==